=== PATIENT | male | born 1950 | race Caucasian/White ===

== ENCOUNTER → 2016-08-21 | Outpatient (CLI) | payer BC ==
[~2016-08-21] MED LIST: ALBUAER19 INH; CABE0.5T PO; FENO48TA9 PO; LEVO50TA6 PO
--- NOTE | 2016-08-21 12:02 | DIAGNOSTIC IMAGING REPORT ---
TWO VIEW CHEST CLINICAL HISTORY: Cough. FINDINGS: PA and lateral chest radiographs are compared to study dated 11/26/2014. The cardiomediastinal silhouette is unremarkable. There is mild atherosclerotic calcification of the thoracic aorta. The lungs appear hyperinflated and hyperlucent with flattening the diaphragm suggesting obstructive physiology. No airspace consolidation or pleural effusion is seen. There is no pneumothorax. The bony thorax appears intact. IMPRESSION: Findings suggest obstructive physiology. There is no acute cardiopulmonary abnormality. Electronically signed by: Joe Medrano M.D. 08/21/2016 12:01 PM Dictated Date/Time: 08/21/2016 11:59 AM
== END | disposition home or self-care (01) ==
LOC: C.RAD1850 11:23
PROVIDERS: ATTEND Internal Medicine Pulmonary Disease
DX: R05 Cough (principal)

== ENCOUNTER → 2017-02-14 | Outpatient (CLI) | payer BC ==
[2017-02-14 09:38] LABS: BASO ABS # 0.06 K/uL (0-0.2); COMPLETE YES; EOS % 5.5 %; HEMATOCRIT 42.1 % (42-52); IG% 0.3 %; LYMPH % 15.6 %; LYMPH ABS # 0.96 K/uL (1.2-3.4); MEAN CELL VOLUME 89.4 fL (80-100); MEAN CORPUSCULAR HEMOGLOBIN 28.7 pg (25-34); MEAN CORPUSCULAR HGB CONC 32.1 g/dl (32-36); MEAN PLATELET VOLUME 10.2 fL (7.4-10.4); MONO % 12.5 %; NEUT % 65.1 %; PLATELET COUNT 190 K/uL (130-400); RED BLOOD COUNT 4.71 M/uL (4.7-6.1); WHITE BLOOD COUNT 6.17 K/uL (4.8-10.8)
[2017-02-14 09:56] LABS: ALB/GLOB RATIO 1.2 (0.9-2); ALT/SGPT 20 U/L (12-78); AST/SGOT 14 U/L (15-37); BLOOD UREA NITROGEN 26 mg/dl (7-18); BUN/CREATININE RATIO 16.3 (10-20); CALCIUM 8.2 mg/dl (8.5-10.1); CARBON DIOXIDE 30 mmol/L (21-32); CHLORIDE 109 mmol/L (98-107); GLUCOSE 148 mg/dl (70-99); SODIUM 143 mmol/L (136-145)
[2017-02-14 09:59] LABS: URINE APPEARANCE CLOUDY (CLEAR); URINE BILIRUBIN NEG (NEG); URINE COLOR YELLOW; URINE NITRITE NEG (NEG); UROBILINOGEN NEG (NEG)
[2017-02-14 10:00] LABS: ESTIMATED AVERAGE GLUCOSE 148 mg/dl; HA1C FLAG Normal (Normal); PROLACTIN 15.39 ng/mL; THYROXINE (T4) 4.8 mcg/dl (4.5-10.9)
[2017-02-14 10:02] LABS: MANUAL MICROSCOPIC REQUIRED? NO; REVIEW REQ? NO
[2017-02-14 10:07] LABS: ALKALINE PHOSPHATASE 72 U/L (45-117); CHOLESTEROL 110 mg/dl (0-200); CHOLESTEROL/HDL RATIO 3.4; HDL CHOLESTEROL 32 mg/dl; LDL CHOLESTEROL CALCULATED 41 mg/dl; TRIGLYCERIDES 184 mg/dl (0-150); VERY LOW DENSITY LIPOPROT CALC 37 mg/dl
== END | disposition home or self-care (01) ==
LOC: C.LAB1850 07:37
PROVIDERS: ATTEND Internal Medicine Pulmonary Disease
DX: Z00.00 Encounter for general adult medical examination without abnormal findings (principal); J45.909 Unspecified asthma, uncomplicated; D35.2 Benign neoplasm of pituitary gland; R73.9 Hyperglycemia, unspecified; E03.9 Hypothyroidism, unspecified

== ENCOUNTER → 2017-04-03 | Outpatient (CLI) | payer BC ==
[2017-04-03 13:31] LABS: RATIO 15.1 mcg/mg (0-30.0)
--- NOTE | 2017-04-18 07:05 | CODING QUERY MEDICAL NECESSITY ---
SUPPORTING DIAGNOSIS NEEDED Dr. Azevedo, A supporting diagnosis is required for the test/procedure performed on this patient in order for us to be reimbursed by the patient's insurance. Please provide a supporting diagnosis for the following test/procedure listed below next to the test name along with your signature. *If there is no additional diagnosis for this patient that would support the following test/procedure please document that below next to the test/procedure. Test(s)/Procedure(s) that require a supporting diagnosis: * ([id number]) VITAMIN D ASSAY DIAGNOSIS: * ([id number]) B12 VITAMIN LEVEL DIAGNOSIS: DATE OF SERVICE: 04/03/17 Provider Signature: Date: Thank you Jose Guadalupe Rodriguez [facility] Information Management Once completed, please kindly fax back to [phone] For questions please call [phone]
== END | disposition home or self-care (01) ==
LOC: C.LAB1850 10:44
PROVIDERS: ATTEND Internal Medicine Endocrinology, Diabetes & Metabolism
DX: E11.9 Type 2 diabetes mellitus without complications (principal); E55.9 Vitamin D deficiency, unspecified

== ENCOUNTER 2017-04-20 21:35 | Emergency (ER) | payer BC ==
[~2017-04-20] VITALS: Ht 170.2 cm; Wt 95.0 kg
[2017-04-20 21:37] VITALS: BP 159/89; PULSE 109; TEMP 36.8; O2SAT 96; Ht 170.2 cm; Wt 95.0 kg
[2017-04-20] MEDS ORDERED: LIDO/EPINEPHRINE/SOD BICARB 20 ML VIAL INFIL ONE (22:15)
[2017-04-20] MEDS ORDERED: DIPHTHERIA/TETANUS/PERTUSSIS 0.5 ML SYR/VIAL IM. ONE (22:15)
--- NOTE | 2017-04-20 22:48 | EMERGENCY ROOM VISIT NOTE ---
ED Visit Note First contact with patient: 21:54 CHIEF COMPLAINT: Forehead laceration 2 hours ago HISTORY OF PRESENT ILLNESS: Patient is a 67-year-old white male who presents emergency department for evaluation of a left upper forehead laceration that he sustained about 2 hours ago. He was walking in the dark, and accidentally struck a metal edge of a portable carport, causing the laceration described below. The patient denies any pain. There was some bleeding initially, which was controlled with pressure. They did cleanse the area with hydrogen peroxide and applied a bandage. He reports that the mechanism is more consistent with how he struck it the sharp edge, and not related to a significant force to suspect fracture or closed head injury. He denies any headache, lightheadedness or dizziness. No vision changes. No neck pain. No nausea or vomiting. He only notes some slight stinging at the site of the laceration. REVIEW OF SYSTEMS: Review of systems as per HPI. All other systems reviewed were negative. At least 6 systems reviewed. PMH: Electronic medical records are reviewed and summarized as above/below. See Problem List. He is unsure of his last tetanus vaccine. SOCIAL HISTORY: Patient lives at home with his . Retired. Does not smoke. PHYSICAL EXAM: Vital Signs: Reviewed Nurse's notes. CONSTITUTIONAL: Patient is a pleasant, well-appearing 67-year-old white male who is awake and alert and in no acute distress. INTEGUMENTARY: There is a laceration over the left upper forehead whose edges are gaping apart. It measures 6 cm in length. There is no active bleeding and no foreign material in the wound. EMERGENCY DEPARTMENT COURSE: The patient's tetanus was updated. The wound was cleaned with Betadine. Sterile technique was used and the wound was anesthetized with 1% buffered lidocaine with epinephrine. Wound was irrigated copiously with normal saline solution. The wound edges were then approximated with 13 interrupted 6-0 nylon sutures. Bacitracin was applied. Wound care measures were discussed. I do not suspect skull fracture, acute sprain of bleed or concussion. Medication reconciliation: I attest that I have personally reviewed the patient' s current medication list. Blood pressure screening: Patient was found to have a slightly elevated blood pressure due to circumstances. I do not believe that the patient requires hypertension monitoring. Problem List Medical Problems: (1) Calculus Of Kidney Status: Resolved (2) Diab Blanca Wo Compl, Type Ii Or Unspec Type, Not Uncntrld Status: Chronic (3) Hypothyroidism Nos Status: Chronic (4) Pituitary Disorder Nec Status: Chronic Surgical Problems: (1) History of cholecystectomy Status: Resolved (2) History of knee surgery Status: Resolved Current/Historical Medications Scheduled Cabergoline (Cabergoline), 0.25 MG PO 2XWK Fenofibrate (Tricor), 48 MG PO DAILY Levothyroxine Sodium (Levothyroxine Sodium), 50 MCG PO DAILY Scheduled PRN Albuterol Inhaler (Ventolin Inhaler), 2 PUFFS INH Q4 PRN for SOB/Wheezing Allergies Coded Allergies: No Known Allergies (Verified , 10/29/13) Vital Signs Date Time Temp Pulse Resp B/P (MAP) Pulse Ox O2 Delivery O2 Flow Rate FiO2 04/20/17 21:37 36.8 109 20 159/89 96 Room Air Medications Administered Medications (Trade) Dose Ordered Sig/Elvia Route Start Time Stop Time Status Last Admin Dose Admin Diphtheria/ Pertussis/Tetanus Vacc (Adacel Inj) 0.5 ml ONCE ONCE IM. 04/20/17 22:15 04/20/17 22:16 DC 04/20/17 22:10 0.5 ML Departure Information Impression Primary Impression: Forehead laceration Referrals Waldemar Schaffer M.D. (PCP) Patient Instructions My [facility] Additional Instructions Keep wound clean and dry. Do not allow any crusting or dried blood to accumulate on sutures. Clean gently with mild soap and water. Use an antibiotic ointment for 3-4 days, then let wound dry. May cover with a bandage as needed. Suture removal in 8-10 days. Return sooner for any signs of infection (increasing redness, swelling, drainage). Ice and elevate for swelling and pain. Ibuprofen 600 mg and Tylenol 1000 mg every 6 hrs for pain. Problem Qualifiers Primary Impression: Forehead laceration Encounter type: initial encounter Qualified Codes: S01.81XA - Laceration without foreign body of other part of head, initial encounter
== END 2017-04-20 22:53 | disposition home or self-care (01) ==
LOC: C.EDB 21:36 → C.EDD 22:53
DX: S01.81XA Laceration without foreign body of other part of head, initial encounter (principal); W22.8XXA Striking against or struck by other objects, initial encounter; Y92.9 Unspecified place or not applicable; Z87.442 Personal history of urinary calculi; E11.9 Type 2 diabetes mellitus without complications; E03.9 Hypothyroidism, unspecified; E23.7 Disorder of pituitary gland, unspecified; Z79.899 Other long term (current) drug therapy

== ENCOUNTER → 2017-04-26 | Outpatient (CLI) | payer BC | END | disposition home or self-care (01) | LOC: C.MAMM 09:52 | PROVIDERS: ATTEND Internal Medicine Endocrinology, Diabetes & Metabolism | DX: D35.2 Benign neoplasm of pituitary gland (principal); E29.1 Testicular hypofunction ==

== ENCOUNTER → 2017-07-25 | Outpatient (CLI) | payer BC ==
[2017-07-25 09:54] LABS: HEMOGLOBIN A1C 5.7 % (4.5-5.6)
== END | disposition home or self-care (01) ==
LOC: C.LAB1850 07:40
PROVIDERS: ATTEND Internal Medicine Endocrinology, Diabetes & Metabolism
DX: E11.9 Type 2 diabetes mellitus without complications (principal)

== ENCOUNTER → 2017-11-27 | Outpatient (CLI) | payer BC ==
[2017-11-27 16:01] LABS: ALBUMIN 3.6 gm/dl (3.4-5.0); ALT/SGPT 21 U/L (12-78); AST/SGOT 15 U/L (15-37); BLOOD UREA NITROGEN 19 mg/dl (7-18); CALCIUM 8.2 mg/dl (8.5-10.1); CARBON DIOXIDE 28 mmol/L (21-32); CREATININE 1.18 mg/dl (0.60-1.40); GLUCOSE 102 mg/dl (70-99); POTASSIUM 3.8 mmol/L (3.5-5.1); SODIUM 141 mmol/L (136-145)
[2017-11-27 16:11] LABS: ALKALINE PHOSPHATASE 76 U/L (45-117); TOTAL PROTEIN 6.9 gm/dl (6.4-8.2)
[2017-11-28 06:16] LABS: HEMOGLOBIN A1C 5.7 % (4.5-5.6)
== END | disposition home or self-care (01) ==
LOC: C.LAB1850 14:34
PROVIDERS: ATTEND Internal Medicine Endocrinology, Diabetes & Metabolism
DX: E11.9 Type 2 diabetes mellitus without complications (principal); E03.9 Hypothyroidism, unspecified

== ENCOUNTER → 2017-12-03 | Outpatient (CLI) | payer BC ==
--- NOTE | 2017-12-03 13:24 | DIAGNOSTIC IMAGING REPORT ---
THYROID ULTRASOUND CLINICAL HISTORY: Hypothyroidism. COMPARISON STUDY: None. TECHNIQUE: Sonography of the thyroid gland was performed. FINDINGS: The right lobe measures 3.2 x 1.1 x 1.2 cm the left lobe measures 2.6 x 1.3 x 1.2 cm. Note is made of a 0.7 x 0.4 x 0.5 cm hypoechoic left lobe nodule. This nodule is centrally echogenic with hypoechoic rim. The isthmus measures 0.2 cm in thickness. IMPRESSION: 1. 0.7 cm left lobe thyroid nodule which does not meet criteria for biopsy. 2. Otherwise, normal thyroid ultrasound. Electronically signed by: Choco Easton M.D. 12/03/2017 1:23 PM Dictated Date/Time: 12/03/2017 1:07 PM
== END | disposition home or self-care (01) ==
LOC: C.ULTR 12:33
PROVIDERS: ATTEND Internal Medicine Endocrinology, Diabetes & Metabolism
DX: E04.1 Nontoxic single thyroid nodule (principal); E03.9 Hypothyroidism, unspecified